=== PATIENT | male | born 1955 | race Caucasian/White ===

== ENCOUNTER 2019-01-25 07:02 | Emergency (ER) | payer OTHER ==
[~2019-01-25] VITALS: Ht 180.3 cm; Wt 108.2 kg
[2019-01-25 07:22] VITALS: BP 139/89
== END 2019-01-25 08:06 | disposition home or self-care (01) ==
LOC: ER 07:03
DX: L98.8 Other specified disorders of the skin and subcutaneous tissue (principal); E78.00 Pure hypercholesterolemia, unspecified
CPT/HCPCS: 99281